=== PATIENT | male | born 1940 | race Two or more races ===

== ENCOUNTER → 2017-07-14 | Emergency (ER) | payer OTHER ==
[~2017-07-14] VITALS: Ht 152.4 cm; Wt 81.6 kg
[~2017-07-14] MED LIST: ADULT ASPIRIN81 MG; ADVAIR HFA 115/12 GM; DALIRESP500 MCG; FUROSEMIDE20 MG; FUROSEMIDE20 MG PO; GABAPENTIN600 MG; GLUCOPHAGE XR500 MG; ISOSORBIDE DINI30 MG; LANTUS100 U/ML SQ; LISINOPRIL2.5 MG; LISINOPRIL5 MG; MONTELUKAST SOD10 MG; NORVASC2.5 M1; Neurin-Sl Tablet Sl SL; PERCOCET 5/3251 TAB PO; QVAR7.3 G1; RECTICARE30 GM TP; SIMVASTATIN5 MG; Synthroid 125MCG TABLET PO; [UNRECOGNIZED DRUG - REMARK]
== END | disposition home or self-care (01) ==
LOC: ER 13:00
DX: J11.1 Influenza due to unidentified influenza virus with other respiratory manifestations (principal); J44.1 Chronic obstructive pulmonary disease with (acute) exacerbation

== ENCOUNTER 2018-03-09 09:51 | Emergency (ER) | payer OTHER ==
[~2018-03-09] VITALS: Ht 170.2 cm; Wt 83.9 kg
== END 2018-03-09 13:59 | disposition home or self-care (01) ==
LOC: ER 09:51
DX: M10.071 Idiopathic gout, right ankle and foot (principal); J44.9 Chronic obstructive pulmonary disease, unspecified

== ENCOUNTER 2018-06-21 09:58 | Outpatient (CLI) | payer OTHER | END 2018-06-21 10:04 | disposition home or self-care (01) | LOC: RAD 09:58 | DX: J80 Acute respiratory distress syndrome (principal) ==

== ENCOUNTER 2019-01-20 10:52 | Outpatient (CLI) | payer OTHER | END 2019-01-20 17:00 | disposition home or self-care (01) | LOC: SONOGRAMA 10:52 | DX: N18.3 Chronic kidney disease, stage 3 (moderate) (principal) ==

== ENCOUNTER 2019-02-07 12:02 | Emergency (ER) | payer OTHER ==
[~2019-02-07] VITALS: Ht 170.2 cm; Wt 83.9 kg
== END 2019-02-07 18:09 | disposition home or self-care (01) ==
LOC: ER 12:02
DX: J44.1 Chronic obstructive pulmonary disease with (acute) exacerbation (principal); Z87.891 Personal history of nicotine dependence

== ENCOUNTER 2019-02-13 12:26 | Emergency (ER) | payer OTHER ==
[~2019-02-13] VITALS: Ht 170.2 cm; Wt 83.9 kg
[2019-02-13] MEDS ORDERED: LANTUS SOL100 UNIT/1 (12:34)
[2019-02-14] MEDS ORDERED: TESSALON PERLE100 M1 PO (15:55)
[2019-02-14] MEDS ORDERED: TUSSIN DM LIQU118 ML PO (15:55)
== END 2019-02-14 17:34 | disposition home or self-care (01) ==
LOC: ER 12:26
DX: J44.1 Chronic obstructive pulmonary disease with (acute) exacerbation (principal); E11.65 Type 2 diabetes mellitus with hyperglycemia; I11.0 Hypertensive heart disease with heart failure; I50.9 Heart failure, unspecified; Z79.4 Long term (current) use of insulin

== ENCOUNTER 2019-02-25 12:04 | Emergency (ER) | payer OTHER ==
[~2019-02-25] VITALS: Ht 162.6 cm; Wt 90.7 kg
[~2019-02-25 12:04] MED LIST changes: +LANTUS SOL100 UNIT/1; +TESSALON PERLE100 M1 PO; +TUSSIN DM LIQU118 ML PO
== END 2019-02-25 22:36 | disposition home or self-care (01) ==
LOC: ER 12:04
DX: J44.1 Chronic obstructive pulmonary disease with (acute) exacerbation (principal); E11.65 Type 2 diabetes mellitus with hyperglycemia; B96.0 Mycoplasma pneumoniae [M. pneumoniae] as the cause of diseases classified elsewhere

== ENCOUNTER 2019-03-18 12:07 | Inpatient (IN) | payer OTHER ==
[~2019-03-18] VITALS: Ht 170.2 cm; Wt 81.6 kg
[2019-03-23] MEDS ORDERED: LEVO-T100 MCG PO (15:47)
[2019-03-28] MEDS ORDERED: TUSSIN DM LIQU118 ML PO (16:55)
== END 2019-03-28 17:13 | disposition home or self-care (01) | DRG 190 ==
LOC: ER 12:07 → ICU-2 19:43 → ICU 03-23 03:28 → SURH 03-25 21:44
PROVIDERS: ADMIT Internal Medicine
PROC: 4A033R1 Measurement of Arterial Saturation, Peripheral, Percutaneous Approach (ICD-10-PCS; principal; 2019-03-18)
PROC: 3E0F7GC Introduction of Other Therapeutic Substance into Respiratory Tract, Via Natural or Artificial Opening (ICD-10-PCS; 2019-03-18)
PROC: 5A09457 Assistance with Respiratory Ventilation, 24-96 Consecutive Hours, Continuous Positive Airway Pressure (ICD-10-PCS; 2019-03-18)
PROC: 0T9B70Z Drainage of Bladder with Drainage Device, Via Natural or Artificial Opening (ICD-10-PCS; 2019-03-18)
DX: J44.1 Chronic obstructive pulmonary disease with (acute) exacerbation (principal); E11.00 Type 2 diabetes mellitus with hyperosmolarity without nonketotic hyperglycemic-hyperosmolar coma (NKHHC); J96.01 Acute respiratory failure with hypoxia; J15.7 Pneumonia due to Mycoplasma pneumoniae; J45.41 Moderate persistent asthma with (acute) exacerbation; I50.42 Chronic combined systolic (congestive) and diastolic (congestive) heart failure; E03.8 Other specified hypothyroidism; J20.9 Acute bronchitis, unspecified; D51.3 Other dietary vitamin B12 deficiency anemia; I11.0 Hypertensive heart disease with heart failure; I25.10 Atherosclerotic heart disease of native coronary artery without angina pectoris; E11.65 Type 2 diabetes mellitus with hyperglycemia; N39.8 Other specified disorders of urinary system; Z79.4 Long term (current) use of insulin; Z99.81 Dependence on supplemental oxygen

== ENCOUNTER 2019-04-05 11:21 | Outpatient (CLI) | payer OTHER ==
[~2019-04-05 11:21] MED LIST changes: +LEVO-T100 MCG PO
== END 2019-04-05 11:25 | disposition home or self-care (01) ==
LOC: NUCLEAR 11:21
DX: I73.00 Raynaud's syndrome without gangrene (principal); I87.2 Venous insufficiency (chronic) (peripheral)

== ENCOUNTER 2019-04-12 11:19 | Inpatient (IN) | payer OTHER ==
[~2019-04-12] VITALS: Ht 170.2 cm; Wt 72.6 kg
[2019-04-16] MEDS ORDERED: AZITHROMYCIN250 MG PO (14:24)
== END 2019-04-16 15:19 | disposition home or self-care (01) | DRG 190 ==
LOC: ER 11:19 → ICU-2 18:47 → MEDJ 04-14 21:18
PROVIDERS: ADMIT Internal Medicine
PROC: 3E0F7GC Introduction of Other Therapeutic Substance into Respiratory Tract, Via Natural or Artificial Opening (ICD-10-PCS; 2019-04-12)
PROC: 4A033R1 Measurement of Arterial Saturation, Peripheral, Percutaneous Approach (ICD-10-PCS; 2019-04-12)
PROC: 0T9B70Z Drainage of Bladder with Drainage Device, Via Natural or Artificial Opening (ICD-10-PCS; 2019-04-12)
PROC: B246ZZZ Ultrasonography of Right and Left Heart (ICD-10-PCS; principal; 2019-04-13)
PROC: 4A12X4Z Monitoring of Cardiac Electrical Activity, External Approach (ICD-10-PCS; 2019-04-13)
DX: J44.1 Chronic obstructive pulmonary disease with (acute) exacerbation (principal); I50.23 Acute on chronic systolic (congestive) heart failure; J45.41 Moderate persistent asthma with (acute) exacerbation; N17.8 Other acute kidney failure; I25.810 Atherosclerosis of coronary artery bypass graft(s) without angina pectoris; I11.0 Hypertensive heart disease with heart failure; E03.8 Other specified hypothyroidism; E87.6 Hypokalemia; N39.8 Other specified disorders of urinary system; E11.65 Type 2 diabetes mellitus with hyperglycemia; Z79.4 Long term (current) use of insulin

== ENCOUNTER 2019-04-27 14:20 | Inpatient (IN) | payer OTHER ==
[~2019-04-27] VITALS: Ht 170.2 cm; Wt 76.2 kg
[~2019-04-27 14:20] MED LIST changes: +AZITHROMYCIN250 MG PO
--- NOTE | 2019-04-27 14:38 | NUR ---
PTE REFIERE TOS Y Y CONGESTION QUE ;E DIFICULTA RESPIRAR SE JOHANN S/V Y SE UBICA EN AREA DE OBSERVACION
--- NOTE | 2019-04-27 17:21 | NUR ---
SE ORIENTA PTE SOBRE EL TRATAMIENTO ORDENADO POR EL DR COWARTA PTE ALERTA Y CONCIENTE POR 3 RN M.HENDERSON REALIZA MUESTRAS DE LABORATORIO Y ADMINISTRA MEDICAMENTO ARABELLA ORDENADO PTE SE CONECTA A MONITOR CARDIACO Y OXYMETRIA DE PULSO PTE SE MANTIENE EN OBSERVACION Y BAJO TRATAMIENTO.
[2019-04-30] MEDS ORDERED: LEVAQUIN750 MG PO (15:21)
== END 2019-04-30 15:48 | disposition home or self-care (01) | DRG 193 ==
LOC: ER 14:20 → MEDJ 23:05 → MEDI 23:05 → MEDJ 04-28 00:18
PROVIDERS: ADMIT Internal Medicine
PROC: 4A033R1 Measurement of Arterial Saturation, Peripheral, Percutaneous Approach (ICD-10-PCS; 2019-04-27)
PROC: 3E0F7GC Introduction of Other Therapeutic Substance into Respiratory Tract, Via Natural or Artificial Opening (ICD-10-PCS; principal; 2019-04-28)
DX: J18.1 Lobar pneumonia, unspecified organism (principal); I50.21 Acute systolic (congestive) heart failure; J44.1 Chronic obstructive pulmonary disease with (acute) exacerbation; J45.41 Moderate persistent asthma with (acute) exacerbation; E11.65 Type 2 diabetes mellitus with hyperglycemia; E03.8 Other specified hypothyroidism; I11.0 Hypertensive heart disease with heart failure; I25.10 Atherosclerotic heart disease of native coronary artery without angina pectoris; G47.39 Other sleep apnea; Z79.4 Long term (current) use of insulin

== ENCOUNTER 2019-09-08 08:19 | Emergency (ER) | payer OTHER ==
[~2019-09-08] VITALS: Ht 170.2 cm; Wt 81.6 kg
[~2019-09-08 08:19] MED LIST changes: +LEVAQUIN750 MG PO
== END 2019-09-08 13:34 | disposition home or self-care (01) ==
LOC: ER 08:19
DX: J44.9 Chronic obstructive pulmonary disease, unspecified (principal); E11.65 Type 2 diabetes mellitus with hyperglycemia; Z03.818 Encounter for observation for suspected exposure to other biological agents ruled out; R05 Cough; R06.02 Shortness of breath

== ENCOUNTER 2019-09-08 16:22 | Inpatient (IN) | payer OTHER ==
[~2019-09-08] VITALS: Ht 165.1 cm; Wt 68.9 kg
[2019-09-16] MEDS ORDERED: CEFDINIR300 MG PO (14:42)
== END 2019-09-16 15:33 | disposition home or self-care (01) | DRG 177 ==
LOC: ER 16:22 → SURH 09-09 13:36 → SURG 09-15 08:44
PROVIDERS: ADMIT Internal Medicine; ATTEND Internal Medicine
PROC: BB24ZZZ Computerized Tomography (CT Scan) of Bilateral Lungs (ICD-10-PCS; principal; 2019-09-08)
PROC: 3E0F7GC Introduction of Other Therapeutic Substance into Respiratory Tract, Via Natural or Artificial Opening (ICD-10-PCS; 2019-09-09)
PROC: 30233N1 Transfusion of Nonautologous Red Blood Cells into Peripheral Vein, Percutaneous Approach (ICD-10-PCS; 2019-09-09)
PROC: BW28ZZZ Computerized Tomography (CT Scan) of Head (ICD-10-PCS; 2019-09-09)
PROC: 4A033R1 Measurement of Arterial Saturation, Peripheral, Percutaneous Approach (ICD-10-PCS; 2019-09-10)
DX: J15.1 Pneumonia due to Pseudomonas (principal); B37.1 Pulmonary candidiasis; J44.1 Chronic obstructive pulmonary disease with (acute) exacerbation; N17.8 Other acute kidney failure; B37.41 Candidal cystitis and urethritis; D64.9 Anemia, unspecified; R09.02 Hypoxemia; I10 Essential (primary) hypertension; E03.8 Other specified hypothyroidism; E11.65 Type 2 diabetes mellitus with hyperglycemia; Z79.4 Long term (current) use of insulin; Z95.5 Presence of coronary angioplasty implant and graft; Z03.818 Encounter for observation for suspected exposure to other biological agents ruled out

== ENCOUNTER 2019-10-13 13:20 | Inpatient (IN) | payer OTHER ==
[~2019-10-13] VITALS: Ht 170.2 cm; Wt 81.6 kg
[~2019-10-13 13:20] MED LIST changes: +CEFDINIR300 MG PO
[2019-10-14] MEDS ORDERED: PREDNISONE20 M1 PO (07:58)
[2019-10-20] MEDS ORDERED: CEFADROXIL500 MG PO (08:59)
[2019-10-20] MEDS ORDERED: INTEGRA PLUS C1 EACH PO (09:00)
== END 2019-10-20 11:17 | disposition home or self-care (01) | DRG 191 ==
LOC: ER 13:20 → SEC-K 20:42 → MEDI 20:42 → MEDJ 23:47 → MEDI 23:47
PROVIDERS: ADMIT Internal Medicine; ATTEND Internal Medicine
PROC: 4A033R1 Measurement of Arterial Saturation, Peripheral, Percutaneous Approach (ICD-10-PCS; principal; 2019-10-13)
PROC: 30233N1 Transfusion of Nonautologous Red Blood Cells into Peripheral Vein, Percutaneous Approach (ICD-10-PCS; 2019-10-13)
PROC: 3E0F7GC Introduction of Other Therapeutic Substance into Respiratory Tract, Via Natural or Artificial Opening (ICD-10-PCS; 2019-10-14)
DX: J44.1 Chronic obstructive pulmonary disease with (acute) exacerbation (principal); N17.8 Other acute kidney failure; E11.65 Type 2 diabetes mellitus with hyperglycemia; E53.8 Deficiency of other specified B group vitamins; I11.9 Hypertensive heart disease without heart failure; I11.0 Hypertensive heart disease with heart failure; I50.9 Heart failure, unspecified; I95.9 Hypotension, unspecified; I25.10 Atherosclerotic heart disease of native coronary artery without angina pectoris; F10.20 Alcohol dependence, uncomplicated; D50.8 Other iron deficiency anemias; D64.9 Anemia, unspecified; R09.02 Hypoxemia; J20.9 Acute bronchitis, unspecified; J44.0 Chronic obstructive pulmonary disease with (acute) lower respiratory infection; M10.9 Gout, unspecified

== ENCOUNTER 2020-01-06 10:19 | Inpatient (IN) | payer OTHER ==
[~2020-01-06] VITALS: Ht 170.2 cm; Wt 79.4 kg
[~2020-01-06 10:19] MED LIST changes: +CEFADROXIL500 MG PO; +INTEGRA PLUS C1 EACH PO; +PREDNISONE20 M1 PO
--- NOTE | 2020-01-06 10:30 | NUR ---
PACIENTE ALERTA Y ORIENTADO EN RAMAN ORA ESFERAS, REFIERE FATIGA DESDE RE, NIEGA FIEBRE. REFIERE SER DEPENDIENTE DE OXIGENO EN [place] CANULA NASAL A 3LT. LLEGA A ER SATURANDO 90% EN AMBIENTE. PULMONES CON RONCUS EN AMBOS PULMONES.
--- NOTE | 2020-01-06 12:29 | NUR ---
PACIENTE MASCULINO ALERTA ORIENTADO DEVIDAMENTE IDENTIFICADO. SE RE ORIENTA SOBRE EL TRATAMIENTO ORDENADO POR EL MEDICO EN TURNO EL MISMO REFIERE ENTENDER. BAJO MEDIDAS ASEPTICAS SE CANALIZA EN ANTEBRAZO LT CON ANGIO #[id number] PATENTE MANNIE DE EDEMA Y ERITEMA. SE JOHANN MUESTRAS DE LABORATORIO Y SE ADMINISTRAN MEDICAMENTOS. ORDENES TOMADAS Y EJECUTADAS POR RN: GORDON
--- NOTE | 2020-01-06 17:11 | NUR ---
1500- SE RECIBE PTE ALERTA Y ORIENTADO X 3 ESFERAS EN CAMA CON BARANDAS ELEVADAS POR SEGURIDAD EN LA UNIDAD DE ICU 2. CONECTADO A MONITOR CARDIACO, OXIMETRIA DE PULSO Y ASISTIDO POR CRISTINA CANULA NASAL A 3LTS. H/L EN BRAZO MARIALUISA AREA MANNIE DE EDEMA Y ERITEMA. SE ORIENTA A PTE SOBRE TX MEDICO. PTE REFIERE COMPRENDER. PENDIENTE U/A. 1700- FIDELIA.RENTA RE-EVALUA PTE. SE COLECTA MUESTRA DE LABORATORIO BAJO MEDIDAS ASEPTICAS. SE ADMINISTRAN MEDICAMENTOS ARABELLA ORDEN MEDICA. SE NOTIFICA CT. SE MANTIENE A PTE BAJO OBSERVACION POR CAMBIOS EN CONDICION MEDICA. PENDIENTE CONSULTA CON .
--- NOTE | 2020-01-06 20:36 | NUR ---
SE TRASLADA PTE A CT. PTE TOLERA ESTUDIO SIN CAMBIOS EN CONDICION MEDICA.
[2020-01-09] MEDS ORDERED: FUROSEMIDE20 MG PO (11:04)
[2020-01-09] MEDS ORDERED: ALLOPURINOL100 MG PO (11:04)
[2020-01-09] MEDS ORDERED: ISOSORBIDE MONO30 M2 PO (11:04)
[2020-01-09] MEDS ORDERED: ATORVASTATIN CA20 MG PO (11:04)
[2020-01-09] MEDS ORDERED: GABAPENTIN600 MG PO (11:04)
[2020-01-09] MEDS ORDERED: METFORMIN HCL850 M1 PO (11:05)
[2020-01-09] MEDS ORDERED: RESTORIL30 MG PO (11:05)
[2020-01-09] MEDS ORDERED: PANTOPRAZOLE SO40 MG PO (11:05)
[2020-01-09] MEDS ORDERED: ST. JOSEPH ASPI81 M2 PO (11:05)
[2020-01-09] MEDS ORDERED: THEOPHYLLINE A400 MG PO (11:06)
== END 2020-01-24 15:44 | disposition home or self-care (01) | DRG 194 ==
LOC: ER 10:19 → MEDI 22:28 → MEDJ 22:28 → MEDI 01-07 00:08 → SURH 01-07 00:16 → MEDJ 01-07 10:53 → SURH 01-07 11:05 → MEDJ 01-07 22:51
PROVIDERS: ADMIT Internal Medicine; ATTEND Internal Medicine
PROC: 4A033R1 Measurement of Arterial Saturation, Peripheral, Percutaneous Approach (ICD-10-PCS; 2020-01-06)
PROC: CB2YYZZ Tomographic (Tomo) Nuclear Medicine Imaging of Respiratory System using Other Radionuclide (ICD-10-PCS; 2020-01-06)
PROC: 3E0F7SF Introduction of Other Gas into Respiratory Tract, Via Natural or Artificial Opening (ICD-10-PCS; 2020-01-06)
PROC: 8E0ZXY6 Isolation (ICD-10-PCS; principal; 2020-01-07)
PROC: 4A12X4Z Monitoring of Cardiac Electrical Activity, External Approach (ICD-10-PCS; 2020-01-08)
PROC: 30233N1 Transfusion of Nonautologous Red Blood Cells into Peripheral Vein, Percutaneous Approach (ICD-10-PCS; 2020-01-09)
PROC: B24BZZZ Ultrasonography of Heart with Aorta (ICD-10-PCS; 2020-01-11)
DX: J15.7 Pneumonia due to Mycoplasma pneumoniae (principal); N17.8 Other acute kidney failure; I13.0 Hypertensive heart and chronic kidney disease with heart failure and stage 1 through stage 4 chronic kidney disease, or unspecified chronic kidney disease; I82.621 Acute embolism and thrombosis of deep veins of right upper extremity; L03.113 Cellulitis of right upper limb; I25.10 Atherosclerotic heart disease of native coronary artery without angina pectoris; R09.02 Hypoxemia; J43.9 Emphysema, unspecified; F10.20 Alcohol dependence, uncomplicated; E11.65 Type 2 diabetes mellitus with hyperglycemia; N18.9 Chronic kidney disease, unspecified; D51.8 Other vitamin B12 deficiency anemias; I50.9 Heart failure, unspecified; Z95.5 Presence of coronary angioplasty implant and graft; Z79.4 Long term (current) use of insulin; Z03.818 Encounter for observation for suspected exposure to other biological agents ruled out